=== PATIENT | female | born 1935 | race Caucasian/White ===

== ENCOUNTER → 2017-08-11 | Outpatient (CLI) | payer OTHER ==
[~2017-08-11] MED LIST: CNT PO; HYDC25 PO; NEBI10TA2 PO; SIMV5TAB2 PO
--- NOTE | 2017-08-11 16:08 | DIAGNOSTIC IMAGING REPORT ---
BRAIN WITHOUT CONTRAST HISTORY: Mental status change G31.84 Mild cognitive [id number] Small vessel disease, cere TECHNIQUE: Multiplanar multisequence MRI of the brain was performed without the use of contrast. COMPARISON STUDY: None. FINDINGS: There are no areas of restricted diffusion to suggest acute infarction. The midline structures are intact. The paranasal sinuses are clear. The mastoid air cells are clear. The ventricles and sulci are within normal limits for age. There is no mass, hematoma, midline shift. The major vascular flow-voids at the skull base are well maintained. Considerable foci of increased signal on the periventricular and deep white matter regions as well as pontine medullary region. This consistent with a considerable chronic small vessel change. Mild cerebral atrophy is present. IMPRESSION: 1. No evidence for an acute ischemic event. 2. Mild cerebral atrophy. 3. Considerable chronic small vessel change throughout both cerebral hemispheres as well as pontine medullary region. The above report was generated using voice recognition software. It may contain grammatical, syntax or spelling errors. Electronically signed by: Rosendo Zimmerman M.D. 08/11/2017 4:07 PM Dictated Date/Time: 08/11/2017 4:05 PM
== END | disposition home or self-care (01) ==
PROVIDERS: ATTEND Psychiatry & Neurology Neurology
DX: G31.84 Mild cognitive impairment of uncertain or unknown etiology (principal); I67.9 Cerebrovascular disease, unspecified

== ENCOUNTER 2018-03-01 21:03 | Emergency (ER) | payer OTHER ==
[~2018-03-01] VITALS: Ht 157.5 cm; Wt 55.5 kg
[2018-03-01 21:11] VITALS: TEMP 36.6; Ht 157.5 cm; Wt 55.5 kg
[2018-03-01] MEDS ORDERED: TRAMADOL HCL 50 MG TAB PO STA (22:04)
--- NOTE | 2018-03-01 22:42 | DIAGNOSTIC IMAGING REPORT ---
CT SCAN OF THE BRAIN WITHOUT IV CONTRAST CLINICAL HISTORY: Fall. Facial injury. COMPARISON STUDY: CT of the brain dated 04/25/2016. TECHNIQUE: Unenhanced axial CT scan of the brain is performed from the vertex to the skull base. A dose lowering technique was utilized adhering to the principles of ALARA. CT DOSE: 638.56 mGycm FINDINGS: Brain parenchyma: There are age-related involutional changes noting moderate patchy subcortical and periventricular microangiopathic change. There is no hemorrhage, mass effect, or evidence of acute territorial ischemia by CT criteria. 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 Mooney-white matter is preserved. No extra-axial fluid collection is seen. Ventricles, sulci, cisterns: Prominent secondary to involutional change. Intracranial vasculature: There is atherosclerotic calcification of the cavernous carotid and vertebral arteries. Calvarium: The skeletal structures are osteopenic. No depressed calvarial fracture is identified. Soft tissues: There is a left periorbital/supraorbital scalp hematoma. Sinuses and mastoids: The visualized paranasal sinuses are clear. The mastoid air cells are well pneumatized. Orbits: The bony orbits are grossly intact. IMPRESSION: 1. There is no hemorrhage, mass effect, or evidence of acute territorial ischemia by CT criteria. 2. Left periorbital/supraorbital scalp hematoma. No depressed calvarial fracture is seen. Electronically signed by: Rahul Hoffman M.D. 03/01/2018 10:40 PM Dictated Date/Time: 03/01/2018 10:37 PM
--- NOTE | 2018-03-01 22:46 | DIAGNOSTIC IMAGING REPORT ---
CT SCAN OF THE CERVICAL SPINE CLINICAL HISTORY: Fall. Trauma. COMPARISON STUDY: No priors. TECHNIQUE: CT scan of the cervical spine is performed from the skull base to the upper thoracic spine. Images are reviewed in the axial, sagittal, and coronal planes. IV contrast was not administered for this examination. A dose lowering technique was utilized adhering to the principles of ALARA. CT DOSE: 366.95 mGycm FINDINGS: Skeletal structures: The skeletal structures are osteopenic. There is no evidence of fracture or subluxation involving the cervical spine. Vertebral body height is maintained. Anterolisthesis is seen at C3-C4 and C4-C5. Alignment is otherwise preserved. There is straightening of the cervical lordosis. Small anterior osteophytes are seen throughout. The odontoid process and lateral masses are intact. There is a large pannus seen posterior to the odontoid process. The atlantoaxial articulation is preserved noting advanced productive degenerative change. The spinous processes appear intact. There is moderate multilevel cervical spondylosis. Uncovertebral and facet arthropathy contribute to neural foraminal narrowing at several levels. Intervertebral discs: Moderate disc space narrowing seen at C3-C4, C5-C6, and C6-C7. Central canal: Posterior disc osteophyte complexes at C5-C6 and C6-C7 likely contribute to acquired compromise of the central canal. Soft tissues: The prevertebral and paraspinous soft tissues are within normal limits. There is mild atherosclerotic calcification of the carotid bulbs. Calvarium: The visualized calvarium at the skull base appears intact. Brain parenchyma: Partially visualized brain parenchyma the skull base is within normal limits noting age-related involutional change. Sinuses and mastoids: The visualized paranasal sinuses are clear. The mastoid air cells are well pneumatized. Lung apices: Clear as visualized. IMPRESSION: 1. There is no evidence of fracture or subluxation involving the cervical spine. 2. Osteopenia and spondylotic change as above. Electronically signed by: Rahul Hoffman M.D. 03/01/2018 10:44 PM Dictated Date/Time: 03/01/2018 10:41 PM
--- NOTE | 2018-03-01 22:49 | DIAGNOSTIC IMAGING REPORT ---
CT SCAN OF THE FACIAL BONES WITHOUT IV CONTRAST CLINICAL HISTORY: Trauma. Fall. Left-sided facial injury. COMPARISON STUDY: CT of the brain performed concurrently on 03/01/2018. TECHNIQUE: High-resolution CT scan of the facial bones is performed. Images are reviewed in the axial, sagittal, and coronal planes. IV contrast was not administered for this examination. A dose lowering technique was utilized adhering to the principles of ALARA. CT DOSE: 551.90 mGycm FINDINGS: The skeletal structures are osteopenic. There is no evidence of facial bone fracture. The bony orbits are intact and the orbital contents are within normal limits. The zygomatic arches, nasal bones, and pterygoid plates are preserved. The maxilla and mandible are intact. There are no layering blood products within the paranasal sinuses. The sinuses and mastoids are clear. The visualized calvarium and upper cervical spine are maintained. There is advanced multilevel cervical spondylosis. Partially imaged brain parenchyma is within normal limits noting age-related involutional change. There is left periorbital and supraorbital scalp contusion/hematoma. Left facial soft tissue contusion is also identified. IMPRESSION: 1. There is no evidence of facial bone fracture. 2. Left periorbital/supraorbital scalp injury as well as left facial soft tissue injury as above. Electronically signed by: Rahul Hoffman M.D. 03/01/2018 10:48 PM Dictated Date/Time: 03/01/2018 10:44 PM
--- NOTE | 2018-03-01 23:00 | DIAGNOSTIC IMAGING REPORT ---
LEFT FOREARM 2 VIEWS CLINICAL HISTORY: Fall. Left wrist pain. FINDINGS: AP and lateral views of the left wrist are obtained. No prior studies are available for comparison at the time of dictation. The skeletal structures are osteopenic. There is no radiographic evidence of left forearm fracture. The elbow and wrist joints are grossly maintained. Soft tissue edema is noted in the distal forearm and around the wrist. IMPRESSION: Soft tissue swelling with no radiographic evidence of left forearm fracture. Electronically signed by: Rahul Hoffman M.D. 03/01/2018 10:59 PM Dictated Date/Time: 03/01/2018 10:58 PM
--- NOTE | 2018-03-01 23:02 | DIAGNOSTIC IMAGING REPORT ---
LEFT WRIST 5 VIEWS CLINICAL HISTORY: Fall with left wrist pain. FINDINGS: 5 views of the left wrist are obtained. No prior studies are available for comparison at the time of dictation. The skeletal structures are osteopenic. No fracture is identified. Soft tissue edema is present around the wrist. Moderate arthritic change is seen at the first carpometacarpal articulation. IMPRESSION: 1. Soft tissue swelling with no radiographic evidence of left wrist fracture. If there is clinical concern for occult fracture consider short-term radiographic follow-up. 2. Osteopenia and arthritic change as above. Electronically signed by: Rahul Hoffman M.D. 03/01/2018 11:01 PM Dictated Date/Time: 03/01/2018 11:00 PM
[2018-03-01 23:14] VITALS: PULSE 49; O2SAT 98
--- NOTE | 2018-03-01 23:30 | EMERGENCY ROOM VISIT NOTE ---
ED Visit Note First contact with patient: 21:50 The patient was seen and examined with Amy Rollins PA-C. I agree with the history, physical and findings. Please see the note for disposition and details.
[2018-03-01 23:55] VITALS: BP 198/98
--- NOTE | 2018-03-02 00:30 | EMERGENCY ROOM VISIT NOTE ---
History First contact with patient: 21:50 Chief Complaint: FALL Stated Complaint: FALL, L ARM PAIN,LAC ON FACE History of Present Illness The patient is a 83 year old female who presents to the Emergency Room with complaints of head injury who tripped and fell while stepping out of her house trying to take the dog for a walk. Patient misstepped and fell hitting her head on the ground and injuring her left wrist. Patient occasionally takes a baby aspirin. No prior fractures to this arm. Patient denies loss conscious, neck pain, chest pain, dyspnea, abdominal pain, back pain, numbness, tingling or any other medical complaints. Patient denies any other medical complaints. states she is acting normally. Review of Systems An 10 system review of systems was completed with positives and pertinent negatives listed in the HPI. Past Medical/Surgical History Hypertension, hyperlipidemia Family History Patient reports no known family medical history. Social History Smoking Status: Never Smoker Alcohol Use: occasionally Marital Status: Occupation Status: retired Current/Historical Medications Scheduled Hydrochlorothiazide (Hctz *), 25 MG PO DAILY Multivitamins/Minerals (Centrum *), 1 TAB PO DAILY Nebivolol Hcl (Bystolic), Unknown Dose PO BID Simvastatin (Zocor), 5 MG PO QPM Physical Exam Vital Signs Date Time Temp Pulse Resp B/P (MAP) Pulse Ox O2 Delivery O2 Flow Rate FiO2 03/01/18 23:55 198/98 03/01/18 23:14 49 18 196/102 98 Room Air 03/01/18 21:11 36.6 57 20 155/88 98 Room Air Physical Exam VITALS: Vitals are noted on the nurse's note and reviewed by myself. Vital signs hypertensive. GENERAL: Pleasant female answering questions appropriately, in no acute distress , nondiaphoretic, well-developed well-nourished. SKIN: The skin was without rashes, erythema, edema, or bruising. There is no tenting of the skin. Capillary reflex less than 2 seconds. HEAD: Normocephalic atraumatic. Face: Left orbital contusion and abrasion. Tender to palpation over the left orbit. Patient can fully open and close jaw without pain. No dental injury appreciated. EARS: External auditory canals clear, tympanic membranes pearly mooney without erythema or effusion bilaterally. EYES: Pupils equal round and reactive to light and accommodation. Conjunctivae without injection, sclerae without icterus. Extraocular movements intact. No pain with EOMI. NOSE: Patent, turbinates without inflammation or discharge. No sinus tenderness. MOUTH: Mucous membranes moist. Pharynx without erythema or exudate. Uvula midline. Airway patent. Tongue does not deviate. NECK: Supple without nuchal rigidity. No lymphadenopathy. No thyromegaly. Cervical spine is nontender. No JVD. HEART: Regular rate and rhythm LUNGS: Clear to auscultation bilaterally without wheezes, rales or rhonchi. No retractions or accessory muscle use. ABDOMEN: Positive bowel sounds x 4. Normal tympanic percussion. Soft, nontender, without masses or organomegaly. Romero sign negative. No guarding or rebound tenderness. No CVA tenderness MUSCULOSKELETAL: No muscle atrophy, erythema, or edema noted. Left wrist tender to palpation over the scaphoid with increased pain with range of motion. Left distal forearm minimally tender to palpation. Left elbow, hand and fingers nontender to palpation. Patient can give the okay sign and thumbs up sign without difficulties. All other extremities with full range of motion without pain. NEURO: Patient was alert and oriented to person place and time. Normal sensation to light and sharp touch. No focal neurological deficits. Cranial nerves II through XII grossly intact. No prior drift. Cerebellar exam intact. Medical Decision & Procedures Medications Administered Medications (Trade) Dose Ordered Sig/[place] Route Start Time Stop Time Status Last Admin Dose Admin Tramadol HCl (Ultram Tab) 50 mg ONE STAT PO 03/01/18 22:04 03/01/18 22:06 DC 03/01/18 22:23 50 MG ED Course Prior records/ancillary studies reviewed. Triage Nursing notes reviewed. Additional history obtained from family The patient's history was concerning for traumatic head injury Differential diagnosis: Etiologies such as concussion, contusion, fracture, subdural hematoma, epidural hematoma, intraparenchymal hemorrhage, as well as other traumatic pathologies were entertained. Physical examination findings: As above. ER treatment provided: Tramadol. Wound care by nursing On reassessment the patient felt better. Diagnostics interpreted by me: Imaging studies: CT SCAN OF THE FACIAL BONES WITHOUT IV CONTRAST CLINICAL HISTORY: Trauma. Fall. Left-sided facial injury. COMPARISON STUDY: CT of the brain performed concurrently on 03/01/2018. TECHNIQUE: High-resolution CT scan of the facial bones is performed. Images are reviewed in the axial, sagittal, and coronal planes. IV contrast was not administered for this examination. A dose lowering technique was utilized adhering to the principles of ALARA. CT DOSE: 551.90 mGycm FINDINGS: The skeletal structures are osteopenic. There is no evidence of facial bone fracture. The bony orbits are intact and the orbital contents are within normal limits. The zygomatic arches, nasal bones, and pterygoid plates are preserved. The maxilla and mandible are intact. There are no layering blood products within the paranasal sinuses. The sinuses and mastoids are clear. The visualized calvarium and upper cervical spine are maintained. There is advanced multilevel cervical spondylosis. Partially imaged brain parenchyma is within normal limits noting age-related involutional change. There is left periorbital and supraorbital scalp contusion/hematoma. Left facial soft tissue contusion is also identified. IMPRESSION: 1. There is no evidence of facial bone fracture. 2. Left periorbital/supraorbital scalp injury as well as left facial soft tissue injury as above. LEFT WRIST 5 VIEWS CLINICAL HISTORY: Fall with left wrist pain. FINDINGS: 5 views of the left wrist are obtained. No prior studies are available for comparison at the time of dictation. The skeletal structures are osteopenic. No fracture is identified. Soft tissue edema is present around the wrist. Moderate arthritic change is seen at the first carpometacarpal articulation. IMPRESSION: 1. Soft tissue swelling with no radiographic evidence of left wrist fracture. If there is clinical concern for occult fracture consider short-term radiographic follow-up. 2. Osteopenia and arthritic change as above. Electronically signed by: Rahul Hoffman M.D. Electronically signed by: Rahul Hoffman M.D. [~ rep ct add3]] CT SCAN OF THE CERVICAL SPINE CLINICAL HISTORY: Fall. Trauma. COMPARISON STUDY: No priors. TECHNIQUE: CT scan of the cervical spine is performed from the skull base to the upper thoracic spine. Images are reviewed in the axial, sagittal, and coronal planes. IV contrast was not administered for this examination. A dose lowering technique was utilized adhering to the principles of ALARA. CT DOSE: 366.95 mGycm FINDINGS: Skeletal structures: The skeletal structures are osteopenic. There is no evidence of fracture or subluxation involving the cervical spine. Vertebral body height is maintained. Anterolisthesis is seen at C3-C4 and C4-C5. Alignment is otherwise preserved. There is straightening of the cervical lordosis. Small anterior osteophytes are seen throughout. The odontoid process and lateral masses are intact. There is a large pannus seen posterior to the odontoid process. The atlantoaxial articulation is preserved noting advanced productive degenerative change. The spinous processes appear intact. There is moderate multilevel cervical spondylosis. Uncovertebral and facet arthropathy contribute to neural foraminal narrowing at several levels. Intervertebral discs: Moderate disc space narrowing seen at C3-C4, C5-C6, and C6-C7. Central canal: Posterior disc osteophyte complexes at C5-C6 and C6-C7 likely contribute to acquired compromise of the central canal. Soft tissues: The prevertebral and paraspinous soft tissues are within normal limits. There is mild atherosclerotic calcification of the carotid bulbs. Calvarium: The visualized calvarium at the skull base appears intact. Brain parenchyma: Partially visualized brain parenchyma the skull base is within normal limits noting age-related involutional change. Sinuses and mastoids: The visualized paranasal sinuses are clear. The mastoid air cells are well pneumatized. Lung apices: Clear as visualized. IMPRESSION: 1. There is no evidence of fracture or subluxation involving the cervical spine. 2. Osteopenia and spondylotic change as above. LEFT FOREARM 2 VIEWS CLINICAL HISTORY: Fall. Left wrist pain. FINDINGS: AP and lateral views of the left wrist are obtained. No prior studies are available for comparison at the time of dictation. The skeletal structures are osteopenic. There is no radiographic evidence of left forearm fracture. The elbow and wrist joints are grossly maintained. Soft tissue edema is noted in the distal forearm and around the wrist. IMPRESSION: Soft tissue swelling with no radiographic evidence of left forearm fracture. CT SCAN OF THE BRAIN WITHOUT IV CONTRAST CLINICAL HISTORY: Fall. Facial injury. COMPARISON STUDY: CT of the brain dated 04/25/2016. TECHNIQUE: Unenhanced axial CT scan of the brain is performed from the vertex to the skull base. A dose lowering technique was utilized adhering to the principles of ALARA. CT DOSE: 638.56 mGycm FINDINGS: Brain parenchyma: There are age-related involutional changes noting moderate patchy subcortical and periventricular microangiopathic change. There is no hemorrhage, mass effect, or evidence of acute territorial ischemia by CT criteria. 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 Mooney-white matter is preserved. No extra-axial fluid collection is seen. Ventricles, sulci, cisterns: Prominent secondary to involutional change. Intracranial vasculature: There is atherosclerotic calcification of the cavernous carotid and vertebral arteries. Calvarium: The skeletal structures are osteopenic. No depressed calvarial fracture is identified. Soft tissues: There is a left periorbital/supraorbital scalp hematoma. Sinuses and mastoids: The visualized paranasal sinuses are clear. The mastoid air cells are well pneumatized. Orbits: The bony orbits are grossly intact. IMPRESSION: 1. There is no hemorrhage, mass effect, or evidence of acute territorial ischemia by CT criteria. 2. Left periorbital/supraorbital scalp hematoma. No depressed calvarial fracture is seen. Electronically signed by: Rahul Hoffman M.D. Electronically signed by: Rahul Hoffman M.D. It appears the patient has a head injury and facial injury who is 83 years old so imaging was ordered. No acute findings in the above imaging besides soft tissue swelling and contusion. Patient was tender over the scaphoid and was splinted in a thumb spica and neurovascular status was rechecked after placement and is intact. She was counseled on head injury signs and symptoms and an orthopedic injury. She is advised to follow-up with the concussion clinic if symptoms persist and orthopedics or here in the ER sooner for headache , fevers, confusion, pain, worsening signs or symptoms or as needed. Patient occasionally takes Ultram for severe pain. She is advised to take Tylenol or the Ultram as directed. Patient was neurovascularly and neurologically intact. She is well-appearing. No other injuries were noted. She was informed about her blood pressure and advised to monitor this. All questions are answered.By the evaluation outlined above emergent etiologies such as fracture, subdural hematoma, epidural hematoma, intraparenchymal hemorrhage, as well as others were deemed relatively unlikely. The pt informed about the findings as listed above. All questions were answered and pleased with the treatment. Return instructions were outlined and the patient was discharged in stable condition. Referral: The patient was referred back to their primary care physician/orthopedics/ concussion clinic for follow-up in 2 to 3 days for a recheck of the current condition. Case reviewed with my attending The chart was completed utilizing Dragon Speech voice recognition software. Grammatical errors, random word insertions, pronoun errors, and incomplete sentences are an occassional consequence of this system due to software limitations, ambient noise, and hardware issues. Any formal questions or concerns about the content, text, or information contained within the body of this dictation should be directly addressed to the physician leasing assistant for clarification. Medical Decision As above Head Trauma GCS Score: 15 Medication Reconcilliation Current Medication List: was personally reviewed by me Blood Pressure Screening Patient's blood pressure: Elevated blood pressure Blood pressure disposition: Referred to PCP Impression Primary Impression: Head injury Additional Impressions: Facial abrasion Wrist injury Facial contusion Fall Departure Information Dispostion Home / Self-Care Condition GOOD Referrals Kenny Regan, DO Forms HOME CARE DOCUMENTATION FORM, IMPORTANT VISIT INFORMATION Patient Instructions [facility], ED Contusion Face, ED Head Injury Closed Additional Instructions Head injury: Read head injury handout and return for any symptoms. Tylenol 1000 mg as needed for pain (Maximum 3000 mg Tylenol in 24 hr period). Avoid alcohol and contact sports/activities for one week and follow up with family doctor prior to returning to these activities if still symptomatic. Ice and elevate head. If your symptoms persist more than a week then follow up with the concussion clinic. Call [phone]. Return to ER sooner for headache, fevers, confusion, worsening signs or symptoms or as needed. Abrasion: Antibiotic ointment and bandage to the areas until healed. Follow up with family doctor or return for any signs of infection (increasing redness, swelling , drainage, or fever). Keep covered when in sun until fully healed then SPF 50 or higher until scar healed. It will take at least 2 weeks for your bruising to heal. Because of gravity the bruising will drain down the face. You might get bruising to the eye also. Wrist injury: DO NOT drive, drink alcohol, operate machinery, or perform dangerous activities today. You were given medications in the ER that can affect your ability to safely function or operate a vehicle. Ultram 50mg: Take 1/2 -1 pill every four hours for breakthrough pain. Avoid alcohol, operating machinery or dangerous equipment, working on ladders or roofs , DRIVING, or situations where being under the influence may be dangerous. It is recommended to use an [id number] stool softener such as Colace, 100mg twice daily while taking this medication to avoid constipation. Acetaminophen(Tylenol) may be used for fever or pain. Use 1000mg every six hours as needed. Avoid using more than 3000mg in a 24 hour period. This medication can be taken if you need to drive, work, or perform activities which may be dangerous when taking narcotic pain medication. Ice compresses for 20 minutes at a time four times daily for 2-3 days. Wear wrist splint until pain subsides. Do not have it so tight that you cannot feel your fingers. Rest and elevate your injury. Continue current medications. Return to the ER immediately for any numbness, tingling, severe pain, extreme swelling in the extremity or as needed. Call Orthopedics in 3-5 days if symptoms persist to arrange follow up for your injury. Problem Qualifiers Primary Impression: Head injury Encounter type: initial encounter Qualified Codes: S09.90XA - Unspecified injury of head, initial encounter
== END 2018-03-01 23:57 | disposition home or self-care (01) ==
LOC: C.EDB 21:05 → C.EDC 23:57
DX: S05.12XA Contusion of eyeball and orbital tissues, left eye, initial encounter (principal); S69.92XA Unspecified injury of left wrist, hand and finger(s), initial encounter; R40.2412 Glasgow coma scale score 13-15, at arrival to emergency department; W18.09XA Striking against other object with subsequent fall, initial encounter; Y93.01 Activity, walking, marching and hiking; Y92.009 Unspecified place in unspecified non-institutional (private) residence as the place of occurrence of the external cause; I10 Essential (primary) hypertension; E78.5 Hyperlipidemia, unspecified